=== PATIENT | female | born 1990 ===

== ENCOUNTER 2024-02-07 11:47 | Inpatient (IN) ==
[2024-02-07 13:53] LABS: Hematocrit 26.3 % (35-45); Hemoglobin 8.3 g/dL (11.5-14.3); Mean Corpuscular Hemoglobin 21.8 pg (27-33); Mean Corpuscular Hgb Conc 31.7 g/dL (31-36); Mean Corpuscular Volume 68.8 fL (80-97); Mean Platelet Volume 8.5 fL (7.5-11.2); Platelet Count 476 10^3/uL (150-450); Red Blood Count 3.83 10^6/uL (3.63-4.92); Red Cell Distribution Width 18.1 % (12-17); White Blood Count 11.5 10^3/uL (3.8-11.8)
[2024-02-07 14:08] LABS: Albumin 3.2 g/dL (3.2-5.2); Calcium 8.4 mg/dL (8.6-10.3); Creatinine, Serum 0.56 mg/dL (0.51-0.95); Globulin 3.1 g/dL (2-4); Potassium 4.2 mmol/L (3.5-5.0); Total Bilirubin 0.4 mg/dL (0.2-1.0); Total Protein 6.3 g/dL (6.4-8.9); eGFR CKD-EPI 123.5 (>60)
[2024-02-07 14:22] LABS: Urine Creatinine Concentration 109.93 mg/dL (20.00-320.00); Urine TP Creat Ratio 0.27 mg/mg
[2024-02-07 15:13] LABS: ABS Basophils 0.1 10^3/uL (0.0-0.1); ABS Eosinophils 0.1 10^3/uL (0.0-0.5); ABS Lymphocytes 1.8 10^3/uL (1.0-4.8); ABS Monocytes 0.9 10^3/uL (0.0-0.9); ABS Neutrophils 8.6 10^3/uL (1.5-7.6); ABS Nucleated RBC 0.02 10^3/ul; Eosinophil % 1.2 %; Lymphocyte % 15.4 %; Nucleated Red Blood Cells % 0.2 %/100WBC (0.0-0.8)
[2024-02-07] MEDS ORDERED: Buffered Lidocaine 1% SYRIN 1 ml INTRADERM ONE (17:18)
[2024-02-07] MEDS: Dinoprostone 10 MG VAG.SUPP VAGINAL ONE (21:13)
[2024-02-08] MEDS: miSOPROStol 100 mcg TAB PO ONE ×3 (11:17→19:40)
[2024-02-09] MEDS: miSOPROStol 100 mcg TAB PO ONE ×2 (01:52→07:15)
[2024-02-09] MEDS: miSOPROStol 100 mcg TAB ONE (07:15)
[2024-02-09] MEDS: Lactated Ringers 1000 ml BAG 1,000 ML IV ONE (14:30)
[2024-02-09] MEDS: Prochlorperazine 5 mg/ml 2 ml VIAL (10 mg) IV PRN (15:01)
[2024-02-09] MEDS: Oxytocin in LR 20,000 MILLI.UNIT/1,000 ML BAG IV SCH (18:05)
[2024-02-09] MEDS: Lactated Ringers 1000 ml BAG 1,000 ML IV SCH (18:06)
[2024-02-09 22:51] LABS: ABS Basophils 0.1 10^3/uL (0.0-0.1); ABS Eosinophils 0.1 10^3/uL (0.0-0.5); ABS Lymphocytes 1.8 10^3/uL (1.0-4.8); ABS Monocytes 0.9 10^3/uL (0.0-0.9); ABS Neutrophils 7.9 10^3/uL (1.5-7.6); ABS Nucleated RBC 0.01 10^3/ul; Hematocrit 27.6 % (35-45); Hemoglobin 8.9 g/dL (11.5-14.3); Lymphocyte % 16.9 %; Mean Corpuscular Hgb Conc 32.1 g/dL (31-36); Mean Corpuscular Volume 68.6 fL (80-97); Mean Platelet Volume 8.6 fL (7.5-11.2); Nucleated Red Blood Cells % 0.1 %/100WBC (0.0-0.8); Platelet Count 523 10^3/uL (150-450); Red Blood Count 4.02 10^6/uL (3.63-4.92); Red Cell Distribution Width 18.3 % (12-17); White Blood Count 10.9 10^3/uL (3.8-11.8)
[2024-02-10] MEDS: fentaNYL 100 mcg/2 ml 50 MCG/ML VIAL ONE (17:54)
[2024-02-10] MEDS: OBEPIDURAL (200 ML) 200 ML EPIDURAL SCH (18:00)
[2024-02-10] MEDS: OBEPIDURAL (200 ML) 0 ML EPIDURAL ONE (18:22)
[2024-02-10] MEDS ORDERED: Sodium Citrate/Citric Acid LIQ 15 ML UDC PO PRN (18:36)
[2024-02-10] MEDS ORDERED: Phenylephrine 40 mcg/mL 10mL (400mcg) SYRINGE IV PUSH PRN ×2 (18:36)
[2024-02-10] MEDS: OBEPIDURAL (200 ML) 200 ML EPIDURAL ONE (18:56)
[2024-02-10 19:24] LABS: Urine Appearance Clear; Urine Bilirubin Negative (Negative); Urine Blood 2+ (Negative); Urine Color Light-Yellow; Urine Glucose Negative (Negative); Urine Ketones 3+ (Negative); Urine Nitrite Negative (Negative); Urine Protein 1+ (>=30 mg/dL) (Negative); Urine Specific Gravity 1.022 (1.002-1.030); Urine Urobilinogen Negative (Negative); Urine pH 6.5 (5.0-8.0)
[2024-02-10 19:29] LABS: Urine Bacteria Absent /HPF (Absent); Urine Red Blood Cell 3+(>10/hpf) /HPF (0-Trace); Urine Squamous Epithelial Cell Present /HPF (Absent); Urine White Blood Cell Trace(0-5/hpf) /HPF (0-Trace)
[2024-02-10] MEDS: Acetaminophen IV 1 GM/100ML 1,000 MG/100 ML BAG IV ONE (21:03)
[2024-02-10] MEDS: Ampicillin ADVAN 2 GM in NS 0.9% 100 ml BAG 100 ML IVPB SCH (21:43)
[2024-02-10] MEDS: Gentamicin ADULT 330 MG in NS 0.9% 100 ml BAG 100 ML IVPB SCH (22:13)
[2024-02-10] MEDS: Lactated Ringers 1000 ml BAG 1,000 ML IV ONE (23:53)
[2024-02-11] MEDS: Lidocaine 1% VIAL 10 MG/ML 30 ML VIAL INJ PRN (01:55)
[2024-02-11] MEDS ORDERED: Glycerin ADULT 2.4 gm SUPP PR PRN (01:56)
[2024-02-11] MEDS ORDERED: Lactated Ringers 1000 ml BAG 1,000 ML IV SCH (02:00)
[2024-02-11] MEDS: Oxytocin in LR 20,000 MILLI.UNIT/1,000 ML BAG IV SCH ×2 (03:03→05:16)
[2024-02-11 03:32] LABS: ABS Basophils 0.1 10^3/uL (0.0-0.1); ABS Monocytes 1.5 10^3/uL (0.0-0.9); ABS Neutrophils 17.3 10^3/uL (1.5-7.6); ABS Nucleated RBC 0.03 10^3/ul; Hematocrit 30.4 % (35-45); Hemoglobin 9.2 g/dL (11.5-14.3); Lymphocyte % 17.4 %; Mean Corpuscular Hemoglobin 21.3 pg (27-33); Mean Corpuscular Hgb Conc 30.2 g/dL (31-36); Mean Corpuscular Volume 70.6 fL (80-97); Mean Platelet Volume 8.4 fL (7.5-11.2); Nucleated Red Blood Cells % 0.1 %/100WBC (0.0-0.8); Platelet Count 538 10^3/uL (150-450); Red Blood Count 4.31 10^6/uL (3.63-4.92); Red Cell Distribution Width 18.3 % (12-17)
[2024-02-11] MEDS ORDERED: Gentamicin ADULT per pharmacy 1 NOTE MISC FOLLOW UP PRN (03:42)
[2024-02-11 03:48] LABS: Albumin 2.9 g/dL (3.2-5.2); Calcium 8.4 mg/dL (8.6-10.3); Creatinine, Serum 0.71 mg/dL (0.51-0.95); Potassium 4.6 mmol/L (3.5-5.0); Total Bilirubin 0.7 mg/dL (0.2-1.0); Total Protein 5.9 g/dL (6.4-8.9); eGFR CKD-EPI 115.1 (>60)
[2024-02-11] MEDS: Ampicillin ADVAN 2 GM in NS 0.9% 100 ml BAG 100 ML IVPB SCH (04:52)
[2024-02-11] MEDS: Lactated Ringers 1000 ml BAG 1,000 ML IV SCH ×2 (04:53→05:19)
[2024-02-11] MEDS: Clindamycin 900 MG/D5W BAG 900 MG/50 ML BAG IVPB SCH (04:54)
[2024-02-11] MEDS: Lidocaine 1% VIAL 10 MG/ML 30 ML VIAL ONE (05:00)
[2024-02-11] MEDS: Acetaminophen IV 1 GM/100ML 1,000 MG/100 ML BAG IV ONE (05:01)
[2024-02-11] MEDS: Lidocaine 1.5% EPI 1:200,000 30 ML SDV ONE ×2 (05:14)
[2024-02-11] MEDS: Acetaminophen IV 1 GM/100ML 1,000 MG/100 ML BAG IV PRN (05:20)
[2024-02-11] MEDS: Heparin 5000 UNITS/ML 1 mL VIAL SUBCUT SCH (06:32)
[2024-02-11] MEDS: fentaNYL 100 mcg/2 ml 50 MCG/ML VIAL IV ONE (07:06)
[2024-02-11] MEDS: Dibucaine 1% OINT 28.35 GM TUBE PR PRN (07:44)
[2024-02-11] MEDS: Witch Hazel PAD JAR TOPICAL PRN (07:44)
[2024-02-11] MEDS: Gentamicin ADULT 330 MG in NS 0.9% 100 ml BAG 100 ML IVPB SCH (22:22)
[2024-02-12 11:23] LABS: ABS Eosinophils 0.1 10^3/uL (0.0-0.5); ABS Monocytes 0.8 10^3/uL (0.0-0.9); ABS Neutrophils 14.5 10^3/uL (1.5-7.6); ABS Nucleated RBC 0.05 10^3/ul; Eosinophil % 0.4 %; Hematocrit 22.7 % (35-45); Hemoglobin 7.3 g/dL (11.5-14.3); Lymphocyte % 11.7 %; Mean Corpuscular Hemoglobin 21.7 pg (27-33); Mean Corpuscular Volume 67.8 fL (80-97); Mean Platelet Volume 8.4 fL (7.5-11.2); Nucleated Red Blood Cells % 0.3 %/100WBC (0.0-0.8); Platelet Count 428 10^3/uL (150-450); Red Blood Count 3.34 10^6/uL (3.63-4.92); Red Cell Distribution Width 18.5 % (12-17); White Blood Count 17.5 10^3/uL (3.8-11.8)
[2024-02-13 10:19] VITALS: BP 134/89
== END 2024-02-13 16:00 | disposition home or self-care (01) | DRG 560 ==
LOC: MCHOBOUT 11:47 → MCHOB 14:48 → ICU 02-11 05:10 → MCHOB 02-11 11:42
PROVIDERS: ADMIT Obstetrics & Gynecology; ATTEND Advanced Practice Midwife